=== PATIENT | female | born 1945 | race Caucasian/White ===

== ENCOUNTER → 2016-06-01 17:08 | Outpatient (CLI) | payer MEDICARE, OTHER ==
[2013-09-04 06:18] VITALS: BMI 27.5
[~2016-06-01 17:08] MED LIST: HYDROCODONE-APA1 TAB PO; NEURONTIN 300300 MG PO; PROTONIX40 MG PO; TRIGLIDE160 MG PO; ULTRAM50 MG PO; WELLBUTRIN XL150 M1 PO; ZANAFLEX4 MG PO; ZANTAC150 MG PO; ZOCOR20 MG PO; ZOLOFT50 MG PO
== END | disposition home or self-care (01) ==
LOC: D.MAMMO 05-10 09:00
DX: Z12.31 Encounter for screening mammogram for malignant neoplasm of breast (principal)

== ENCOUNTER → 2017-06-03 21:32 | Outpatient (CLI) | payer MEDICARE, OTHER ==
[2013-09-04 06:18] VITALS: BMI 27.5
== END | disposition home or self-care (01) ==
LOC: D.MAMMO 10:00
DX: Z12.31 Encounter for screening mammogram for malignant neoplasm of breast (principal)

== ENCOUNTER 2018-07-07 09:00 | Outpatient (CLI) | payer MEDICARE, OTHER ==
[2013-09-04 06:18] VITALS: BMI 27.5
== END 2018-07-07 10:00 | disposition home or self-care (01) ==
LOC: D.MAMMO 09:00
PROVIDERS: ATTEND Family Medicine
DX: Z12.31 Encounter for screening mammogram for malignant neoplasm of breast (principal)

== ENCOUNTER 2019-08-13 19:00 | Outpatient (CLI) | payer MEDICARE, OTHER ==
[2013-09-04 06:18] VITALS: BMI 27.5
== END 2019-08-13 23:59 | disposition home or self-care (01) ==
LOC: D.MAMMO 19:00
PROVIDERS: ATTEND Family Medicine
DX: Z12.31 Encounter for screening mammogram for malignant neoplasm of breast (principal)

== ENCOUNTER 2020-07-28 15:30 | Outpatient (CLI) | payer MEDICARE, OTHER ==
[2020-03-05 09:54] VITALS: BMI 30.1
[~2020-07-28 15:30] MED LIST changes: +BENICAR20 MG
== END 2020-07-28 23:59 | disposition home or self-care (01) ==
LOC: D.MAMMO 15:30
PROVIDERS: ATTEND Family Medicine
DX: Z12.31 Encounter for screening mammogram for malignant neoplasm of breast (principal)